=== PATIENT | female | born 1995 | race African-American/Black ===

== ENCOUNTER 2022-10-05 12:16 | Emergency (ER) | payer BC ==
[~2022-10-05] VITALS: Ht 167.6 cm; Wt 141.5 kg
[2022-10-05] MEDS ORDERED: PRENATAL + DHA1 EAC1 PO (12:46)
[2022-10-05] MEDS ORDERED: CHILDREN'S ASPI81 MG PO (12:46)
== END 2022-10-05 18:55 | disposition home or self-care (01) ==
LOC: ER 12:16
DX: O20.9 Hemorrhage in early pregnancy, unspecified (principal); Z3A.12 12 weeks gestation of pregnancy